=== PATIENT | female | born 1960 | race Caucasian/White ===

== ENCOUNTER → 2021-07-02 | Outpatient (CLI) | payer OTHER ==
[~2021-07-02] MED LIST: ACULAR 0.5% OP S5 ML OP; ALBUTEROL2.5 MG/3 M INH; DESYREL 50 MG T50 MG PO; IMITREX100 MG PO; INDERAL TAB 2020 MG PO; K-DUR TAB 20 M20 MEQ PO; KLONOPIN TAB 00.5 MG PO; LASIX20 MG PO; MIRALAX17 GM PO; MOBIC7.5 MG PO; NORVASC2.5 MG PO; OXYBUTYNIN CHLOR5 MG PO; PERCOCET 10-321 EACH PO; PILOCARPINE HCL5 MG PO; PLAVIX 75 MG TA75 MG PO; PROTONIX40 MG PO; PROZAC20 MG PO; QUETIAPINE FUM100 MG PO; SYMBICORT 160-1 INHA INH; SYNTHROID100 MCG PO; TOPAMAX100 MG PO; TOPAMAX50 MG PO; ULTRAM50 MG PO; VENTOLIN HFA 66.7 GM INH; XARELTO10 MG PO; ZOCOR20 MG PO
== END ==
LOC: KOH-I 08:09
DX: G89.29 Other chronic pain (principal); M54.5 Low back pain; M48.54XA Collapsed vertebra, not elsewhere classified, thoracic region, initial encounter for fracture; M51.37 Other intervertebral disc degeneration, lumbosacral region; M48.07 Spinal stenosis, lumbosacral region; M51.27 Other intervertebral disc displacement, lumbosacral region
CPT/HCPCS: 72148